=== PATIENT | male | born 1950 | race Caucasian/White ===

== ENCOUNTER 2018-02-04 06:50 | Day surgery (SDC) | payer MEDICARE, OTHER | END 2018-02-04 14:22 | disposition home or self-care (01) | LOC: GIL 06:50 | DX: K92.1 Melena (principal); K29.30 Chronic superficial gastritis without bleeding; K64.8 Other hemorrhoids; I10 Essential (primary) hypertension; E11.9 Type 2 diabetes mellitus without complications; E03.9 Hypothyroidism, unspecified; Z79.82 Long term (current) use of aspirin; Z79.84 Long term (current) use of oral hypoglycemic drugs | CPT/HCPCS: 43239; 82962; 88305; 88312 ==